=== PATIENT | female | born 1965 | race Caucasian/White ===

== ENCOUNTER 2017-12-04 18:49 | Inpatient (IN) | payer OTHER ==
[2017-12-04] MEDS: LIDOCAINE/MYLANTA 40 ML BTL PO (20:50)
[2017-12-04] MEDS: ASPIRIN 325 MG TAB PO (20:50)
[2017-12-04] MEDS: IPRATROPIUM (NEB) 0.5 MG/2.5 ML AMP HHN (21:00)
[2017-12-04] MEDS: ALBUTEROL 0.083% (NEB) 2.5 MG/3 ML AMP HHN (21:00)
[2017-12-04 21:09] LABS: ADD MAN DIFF? NO
[2017-12-04] MEDS: METHYLPREDNISOLONE 125 MG INJ IV (21:09)
[2017-12-04 21:14] LABS: BASOPHIL # 0.1 10^3/ul (0.0-0.1); BASOPHILS % 1.2 % (0.0-2.0); EOSINOPHILS # 1.5 10^3/ul (0.0-0.5); EOSINOPHILS % 18.9 % (0.0-7.0); HEMATOCRIT 41.6 % (37.0-47.0); HEMOGLOBIN 13.9 g/dl (12.0-16.0); LYMPHOCYTES # 2.9 10^3/ul (0.8-2.9); LYMPHOCYTES % 36.2 % (15.0-51.0); MEAN CORPUSCULAR HEMOGLOBIN 28.2 pg (29.0-33.0); MEAN CORPUSCULAR HGB CONC 33.4 g/dl (32.0-37.0); MEAN CORPUSCULAR VOLUME 84.4 fl (82.0-101.0); MEAN PLATELET VOLUME 10.5 fl (7.4-10.4); MONOCYTE # 0.8 10^3/ul (0.3-0.9); MONOCYTES % 10.2 % (0.0-11.0); NEUTROPHIL # 2.7 10^3/ul (1.6-7.5); NEUTROPHILS % 33.3 % (39.0-77.0); PLATELET COUNT 327 10^3/UL (140-415); RED BLOOD COUNT 4.93 10^6/ul (4.20-5.40); RED CELL DISTRIBUTION WIDTH 12.9 % (11.5-14.5)
[2017-12-04 21:40] LABS: ANION GAP 15 (8-16); BLOOD UREA NITROGEN 11 mg/dl (7-20); CALCIUM 9.4 mg/dl (8.4-10.2); CARBON DIOXIDE 27 mmol/L (21-31); CHLORIDE 105 mmol/L (97-110); CREATININE 0.69 mg/dl (0.44-1.00); GLUCOSE 110 mg/dl (70-220); LIPASE 109 U/L (23-300); SODIUM 143 mmol/L (135-144)
[2017-12-04 21:50] LABS: B-TYPE NATRIURETIC PEPTIDE 65 PG/ML (0-125)
[2017-12-04 21:51] LABS: TROPONIN-I < 0.012 ng/ml (0.00-0.12)
[2017-12-04] MEDS: LEVALBUTEROL (NEB) 1.25 MG/0.5 ML AMP HHN (23:25)
[2017-12-04] MEDS: MAGNESIUM SULFATE 2 GM/50 ML 50 ML IVPB (23:47)
[2017-12-05] MEDS: LEVALBUTEROL (NEB) 0.63 MG/3 ML AMP HHN (04:31)
[2017-12-05] MEDS ORDERED: NACL 0.9% 3 ML SYG IV (05:30)
[2017-12-05 06:25] LABS: AADO2 Arterial 84.8 mmHg (7.0-24.0); Allen Test ACCEPTAB; Arterial Base Excess -2.7 mmol/L (-3.0-3); Arterial COHb 0.3 % (0.0-3.0); Arterial Fraction of Oxyhgb 95.4 % (93.0-99.0); Arterial HCO3 22.1 mmol/L (22.0-26.0); Arterial MetHb 0.3 % (0.0-1.5); Arterial Total Hemglobin 14.1 g/dl (12.0-18.0); Arterial pCO2 38.9 mmhg (35-45); MODE MASK - BIPAP; Site Right Radial
[2017-12-05] MEDS ORDERED: ACETAMINOPHEN 325 MG TAB PO (07:30)
[2017-12-05] MEDS ORDERED: ONDANSETRON 4 MG INJ IV ×2 (07:30)
[2017-12-05 07:39] LABS: ADD MAN DIFF? NO
[2017-12-05 07:41] LABS: BASOPHILS % 0.2 % (0.0-2.0); EOSINOPHILS % 0.1 % (0.0-7.0); HEMATOCRIT 40.4 % (37.0-47.0); HEMOGLOBIN 13.2 g/dl (12.0-16.0); LYMPHOCYTES # 0.9 10^3/ul (0.8-2.9); LYMPHOCYTES % 8.5 % (15.0-51.0); MEAN CORPUSCULAR HGB CONC 32.7 g/dl (32.0-37.0); MEAN CORPUSCULAR VOLUME 85.6 fl (82.0-101.0); MEAN PLATELET VOLUME 10.5 fl (7.4-10.4); MONOCYTE # 0.2 10^3/ul (0.3-0.9); MONOCYTES % 2.2 % (0.0-11.0); NEUTROPHILS % 88.5 % (39.0-77.0); PLATELET COUNT 308 10^3/UL (140-415); RED BLOOD COUNT 4.72 10^6/ul (4.20-5.40)
[2017-12-05 07:41] LABS: WHITE BLOOD COUNT 10.2 10^3/ul (4.8-10.8)
[2017-12-05 08:08] LABS: ALANINE AMINOTRANSFERASE 31 IU/L (13-69); ALBUMIN 4.6 g/dl (3.3-4.9); ALKALINE PHOSPHATASE 75 IU/L (42-121); ASPARTATE AMINO TRANSFERASE 29 IU/L (15-46); BILIRUBIN,INDIRECT 0.1 mg/dl (0-1.1); BILIRUBIN,TOTAL 0.1 mg/dl (0.2-1.3); BLOOD UREA NITROGEN 12 mg/dl (7-20); CALCIUM 9.7 mg/dl (8.4-10.2); CARBON DIOXIDE 23 mmol/L (21-31); CHLORIDE 102 mmol/L (97-110); CREATININE 0.65 mg/dl (0.44-1.00); GLUCOSE 185 mg/dl (70-220); SODIUM 140 mmol/L (135-144); TOTAL PROTEIN 7.3 g/dl (6.1-8.1)
[2017-12-05 08:12] LABS: ANION GAP 20 (8-16); POTASSIUM 4.6 mmol/L (3.5-5.1)
[2017-12-05] MEDS ORDERED: NON-FORMULARY/PATIENT OWN MED (Salmeterol Xinaf-Fluticasone* (Advair HFA*) 2 INH) IH (09:00)
[2017-12-05] MEDS: LEVOFLOXACIN 500MG/D5W (PMX) 100 ML IVPB (11:00)
[2017-12-05] MEDS: HEPARIN 5,000 UNIT/0.5 ML VIAL SC ×2 (11:00→21:08)
[2017-12-05] MEDS: METHYLPREDNISOLONE 125 MG INJ IV ×2 (11:07→18:49)
[2017-12-05] MEDS: AMLODIPINE 10 MG TAB PO (11:27)
[2017-12-05] MEDS: ACETAMINOPHEN 325 MG TAB PO (15:34)
[2017-12-05] MEDS: hydrALAzine 20 MG INJ IV (18:01)
[2017-12-05] MEDS: morphine 2 MG INJ IV (18:02)
[2017-12-05] MEDS: ONDANSETRON 4 MG INJ IV (18:02)
[2017-12-05] MEDS: GUAIFENESIN/CODEINE 5ML CUP PO (18:48)
[2017-12-05] MEDS: LEVALBUTEROL (NEB) 1.25 MG/0.5 ML AMP HHN (21:30)
[2017-12-05] MEDS: IPRATROPIUM (NEB) 0.5 MG/2.5 ML AMP HHN (21:31)
[2017-12-06] MEDS: ACETAMINOPHEN 325 MG TAB PO (00:01)
[2017-12-06] MEDS: METHYLPREDNISOLONE 125 MG INJ IV ×3 (00:01→11:53)
[2017-12-06] MEDS: IPRATROPIUM (NEB) 0.5 MG/2.5 ML AMP HHN ×2 (00:23→04:01)
[2017-12-06] MEDS: LEVALBUTEROL (NEB) 1.25 MG/0.5 ML AMP HHN ×6 (00:23→22:55)
[2017-12-06] MEDS: FAMOTIDINE 20 MG TAB PO (07:33)
[2017-12-06 08:27] LABS: ADD MAN DIFF? NO
[2017-12-06 08:30] LABS: ABNORMAL IP MESSAGE 1; BASOPHILS % 0.1 % (0.0-2.0); HEMATOCRIT 41.4 % (37.0-47.0); HEMOGLOBIN 13.5 g/dl (12.0-16.0); LYMPHOCYTES # 1.8 10^3/ul (0.8-2.9); LYMPHOCYTES % 7.8 % (15.0-51.0); MEAN CORPUSCULAR HEMOGLOBIN 28.1 pg (29.0-33.0); MEAN CORPUSCULAR HGB CONC 32.6 g/dl (32.0-37.0); MEAN CORPUSCULAR VOLUME 86.3 fl (82.0-101.0); MEAN PLATELET VOLUME 10.9 fl (7.4-10.4); MONOCYTE # 0.6 10^3/ul (0.3-0.9); MONOCYTES % 2.6 % (0.0-11.0); NEUTROPHIL # 20.8 10^3/ul (1.6-7.5); NEUTROPHILS % 88.4 % (39.0-77.0); PLATELET COUNT 371 10^3/UL (140-415); RED CELL DISTRIBUTION WIDTH 13.1 % (11.5-14.5)
[2017-12-06 08:30] LABS: WHITE BLOOD COUNT 23.5 10^3/ul (4.8-10.8)
[2017-12-06 08:35] LABS: POSITIVE DIFF @See below
[2017-12-06] MEDS: ONDANSETRON 4 MG INJ IV (09:02)
[2017-12-06] MEDS: morphine 2 MG INJ IV (09:02)
[2017-12-06] MEDS: AMLODIPINE 10 MG TAB PO (09:02)
[2017-12-06] MEDS: GUAIFENESIN/CODEINE 5ML CUP PO ×2 (09:02→21:41)
[2017-12-06] MEDS: LEVOFLOXACIN 500MG/D5W (PMX) 100 ML IVPB (09:03)
[2017-12-06] MEDS: HEPARIN 5,000 UNIT/0.5 ML VIAL SC ×2 (09:16→21:42)
[2017-12-06 09:28] LABS: ANION GAP 18 (8-16); BLOOD UREA NITROGEN 17 mg/dl (7-20); CALCIUM 9.7 mg/dl (8.4-10.2); CARBON DIOXIDE 25 mmol/L (21-31); CHLORIDE 102 mmol/L (97-110); CREATININE 0.67 mg/dl (0.44-1.00); GLUCOSE 177 mg/dl (70-220); PHOSPHORUS 3.7 mg/dl (2.5-4.9); POTASSIUM 4.1 mmol/L (3.5-5.1); SODIUM 141 mmol/L (135-144)
[2017-12-06] MEDS: LISINOPRIL 10 MG TAB PO (15:00)
[2017-12-06] MEDS: HYDROCHLOROTHIAZIDE 25 MG TAB PO (15:00)
[2017-12-06] MEDS: METHYLPREDNISOLONE 40 MG INJ IV (17:04)
[2017-12-06] MEDS ORDERED: morphine LIQ (10 MG/5 ML) CUP PO (18:30)
[2017-12-07] MEDS: METHYLPREDNISOLONE 40 MG INJ IV ×5 (00:57→23:21)
[2017-12-07] MEDS: LEVALBUTEROL (NEB) 1.25 MG/0.5 ML AMP HHN ×6 (02:27→19:57)
[2017-12-07 07:31] LABS: ADD MAN DIFF? NO
[2017-12-07 07:35] LABS: BASOPHILS % 0.1 % (0.0-2.0); HEMATOCRIT 37.9 % (37.0-47.0); HEMOGLOBIN 12.4 g/dl (12.0-16.0); LYMPHOCYTES # 0.9 10^3/ul (0.8-2.9); LYMPHOCYTES % 5.6 % (15.0-51.0); MEAN CORPUSCULAR HEMOGLOBIN 28.1 pg (29.0-33.0); MEAN CORPUSCULAR HGB CONC 32.7 g/dl (32.0-37.0); MEAN CORPUSCULAR VOLUME 85.7 fl (82.0-101.0); MEAN PLATELET VOLUME 10.7 fl (7.4-10.4); MONOCYTE # 0.6 10^3/ul (0.3-0.9); MONOCYTES % 3.5 % (0.0-11.0); NEUTROPHIL # 14.9 10^3/ul (1.6-7.5); NEUTROPHILS % 89.5 % (39.0-77.0); PLATELET COUNT 317 10^3/UL (140-415); RED BLOOD COUNT 4.42 10^6/ul (4.20-5.40); RED CELL DISTRIBUTION WIDTH 13.4 % (11.5-14.5)
[2017-12-07 07:35] LABS: WHITE BLOOD COUNT 16.6 10^3/ul (4.8-10.8)
[2017-12-07] MEDS: HYDROCHLOROTHIAZIDE 25 MG TAB PO (08:14)
[2017-12-07] MEDS: LISINOPRIL 10 MG TAB PO (08:14)
[2017-12-07] MEDS: HEPARIN 5,000 UNIT/0.5 ML VIAL SC ×2 (08:16→21:02)
[2017-12-07] MEDS: LEVOFLOXACIN 500MG/D5W (PMX) 100 ML IVPB (08:21)
[2017-12-07] MEDS: BUDESONIDE (NEB) 0.5MG/2ML AMP HHN ×2 (14:26→19:54)
[2017-12-07] MEDS: GUAIFENESIN/CODEINE 5ML CUP PO (23:28)
[2017-12-08] MEDS: LEVALBUTEROL (NEB) 1.25 MG/0.5 ML AMP HHN ×6 (01:28→20:31)
[2017-12-08] MEDS: METHYLPREDNISOLONE 40 MG INJ IV ×4 (05:35→20:15)
[2017-12-08] MEDS: LEVOFLOXACIN 500 MG TAB PO (05:39)
[2017-12-08] MEDS: BUDESONIDE (NEB) 0.5MG/2ML AMP HHN ×2 (08:46→20:31)
[2017-12-08] MEDS: LISINOPRIL 10 MG TAB PO (10:03)
[2017-12-08] MEDS: HYDROCHLOROTHIAZIDE 25 MG TAB PO (10:03)
[2017-12-08] MEDS: HEPARIN 5,000 UNIT/0.5 ML VIAL SC ×2 (10:05→20:16)
[2017-12-08] MEDS: ACETAMINOPHEN 325 MG TAB PO ×2 (10:07→16:33)
[2017-12-08] MEDS: GUAIFENESIN/CODEINE 5ML CUP PO (10:16)
[2017-12-08 20:15] LABS: TROPONIN-I < 0.012 ng/ml (0.00-0.12)
[2017-12-08 21:07] LABS: D-DIMER < 220.00 ng/ml (<460)
[2017-12-09] MEDS: LEVALBUTEROL (NEB) 1.25 MG/0.5 ML AMP HHN ×6 (00:37→20:31)
[2017-12-09] MEDS: METHYLPREDNISOLONE 40 MG INJ IV (05:27)
[2017-12-09] MEDS: LEVOFLOXACIN 500 MG TAB PO (05:27)
[2017-12-09 09:02] LABS: ADD MAN DIFF? NO
[2017-12-09 09:08] LABS: WHITE BLOOD COUNT 12.9 10^3/ul (4.8-10.8)
[2017-12-09 09:08] LABS: BASOPHILS % 0.2 % (0.0-2.0); EOSINOPHILS % 0.1 % (0.0-7.0); HEMATOCRIT 39.7 % (37.0-47.0); LYMPHOCYTES % 7.9 % (15.0-51.0); MEAN CORPUSCULAR HEMOGLOBIN 28.3 pg (29.0-33.0); MEAN CORPUSCULAR HGB CONC 32.7 g/dl (32.0-37.0); MEAN CORPUSCULAR VOLUME 86.3 fl (82.0-101.0); MEAN PLATELET VOLUME 10.7 fl (7.4-10.4); MONOCYTE # 0.8 10^3/ul (0.3-0.9); MONOCYTES % 6.5 % (0.0-11.0); NEUTROPHIL # 10.4 10^3/ul (1.6-7.5); NEUTROPHILS % 80.4 % (39.0-77.0); PLATELET COUNT 318 10^3/UL (140-415); RED CELL DISTRIBUTION WIDTH 13.2 % (11.5-14.5)
[2017-12-09] MEDS: BUDESONIDE (NEB) 0.5MG/2ML AMP HHN ×2 (09:22→20:41)
[2017-12-09 09:27] LABS: ANION GAP 11 (8-16); BLOOD UREA NITROGEN 20 mg/dl (7-20); CALCIUM 9.2 mg/dl (8.4-10.2); CARBON DIOXIDE 29 mmol/L (21-31); CHLORIDE 103 mmol/L (97-110); CREATININE 0.62 mg/dl (0.44-1.00); GLUCOSE 160 mg/dl (70-220); POTASSIUM 4.4 mmol/L (3.5-5.1); SODIUM 139 mmol/L (135-144)
[2017-12-09 09:33] LABS: MAGNESIUM 2.1 mg/dl (1.7-2.5)
[2017-12-09 09:33] LABS: PHOSPHORUS 3.3 mg/dl (2.5-4.9)
[2017-12-09] MEDS: ACETAMINOPHEN 325 MG TAB PO (09:53)
[2017-12-09] MEDS: HYDROCHLOROTHIAZIDE 25 MG TAB PO (09:54)
[2017-12-09] MEDS: LISINOPRIL 10 MG TAB PO (09:54)
[2017-12-09] MEDS: HEPARIN 5,000 UNIT/0.5 ML VIAL SC ×2 (10:29→20:48)
[2017-12-09] MEDS: predniSONE 10 MG TAB PO (13:02)
[2017-12-09 14:38] LABS: AADO2 Arterial 32.3 mmHg (7.0-24.0); Allen Test ACCEPTAB; Arterial Base Excess 3.2 mmol/L (-3.0-3); Arterial Blood Gas Oxygen Sat 95.2 mmHG (95.0-98.0); Arterial COHb 0.2 % (0.0-3.0); Arterial Fraction of Oxyhgb 94.8 % (93.0-99.0); Arterial HCO3 26.6 mmol/L (22.0-26.0); Arterial MetHb 0.2 % (0.0-1.5); Arterial Total Hemglobin 13.7 g/dl (12.0-18.0); Arterial pCO2 36.8 mmhg (35-45); MODE ROOM AIR; Site Right Radial
[2017-12-10] MEDS: LEVALBUTEROL (NEB) 1.25 MG/0.5 ML AMP HHN ×4 (00:54→12:54)
[2017-12-10] MEDS: LEVOFLOXACIN 500 MG TAB PO (05:17)
[2017-12-10 07:51] LABS: WHITE BLOOD COUNT 12.4 10^3/ul (4.8-10.8)
[2017-12-10 07:51] LABS: ABNORMAL IP MESSAGE 1; HEMATOCRIT 38.6 % (37.0-47.0); HEMOGLOBIN 12.9 g/dl (12.0-16.0); MEAN CORPUSCULAR HEMOGLOBIN 28.7 pg (29.0-33.0); MEAN CORPUSCULAR HGB CONC 33.4 g/dl (32.0-37.0); MEAN PLATELET VOLUME 10.7 fl (7.4-10.4); PLATELET COUNT 291 10^3/UL (140-415); RED BLOOD COUNT 4.49 10^6/ul (4.20-5.40); RED CELL DISTRIBUTION WIDTH 12.8 % (11.5-14.5)
[2017-12-10 07:56] LABS: ADD MAN DIFF? YES; POSITIVE DIFF @See below
[2017-12-10] MEDS: LISINOPRIL 10 MG TAB PO (08:16)
[2017-12-10] MEDS: predniSONE 10 MG TAB PO (08:16)
[2017-12-10] MEDS: HYDROCHLOROTHIAZIDE 25 MG TAB PO (08:16)
[2017-12-10] MEDS: HEPARIN 5,000 UNIT/0.5 ML VIAL SC (08:21)
[2017-12-10] MEDS: BUDESONIDE (NEB) 0.5MG/2ML AMP HHN (10:16)
[2017-12-10 11:22] LABS: ANISOCYTOSIS 1+ (0-0); BAND NEUTROPHILS #M 0.4 10^3/ul (0.0-0.6); BAND NEUTROPHILS % (M) 4 % (0-4); EOSINOPHILS % (M) 1 % (0-7); LYMPHOCYTES #M 2.8 10^3/ul (0.8-2.9); LYMPHOCYTES % (M) 23 % (15-51); METAMYELOCYTES #M 0.1 10^3/ul (0.0-0.0); METAMYELOCYTES %M 1 % (0-0); MONOCYTE #M 0.7 10^3/ul (0.3-0.9); MONOCYTES % (M) 6 % (0-11); MYELOCYTES #M 0.1 10^3/ul (0.0-0.0); MYELOCYTES % (M) 1 % (0-0); PLASMA CELLS #M 0.1 10^3/ul (0.0-0.0); PLASMAC%(M) 1 % (0); PLATELET ESTIMATE NORMAL; SEG NEUT #M 7.9 10^3/ul (1.6-7.5); SEGMENTED NEUTROPHILS (M) % 63 % (39-77); SMUDGE%M 2 % (0-0)
== END 2017-12-10 14:24 | disposition home or self-care (01) | DRG 203 ==
LOC: E/R 18:49 → MS4 12-05 15:59
DX: J45.901 Unspecified asthma with (acute) exacerbation (principal); I10 Essential (primary) hypertension; J20.9 Acute bronchitis, unspecified; R00.0 Tachycardia, unspecified
CPT/HCPCS: 36415; 36600; 71045; 80048; 80053; 82803; 83690; 83735; 83880; 84100; 84484; 85025; 85378; 93005; 93306; 94640; 94644; 94645; 94660; 94664; 96372; 96374; 96375; 96376; 99291-25